=== PATIENT | female | born 1990 | race Caucasian/White ===

== ENCOUNTER 2021-03-15 10:49 | Emergency (ER) | payer BC, SELFPAY ==
[2021-03-15 12:57] VITALS: BP 132/91; PULSE 96; RESP 16; TEMP 36.9; O2SAT 98
--- NOTE | 2021-03-15 13:40 | ED.URI ---
HPI - URI/Sore Throat General Chief Complaint: Upper Respiratory Infection Stated Complaint: Cough,Congestion,Body Aches,Nausea Time Seen by Provider: 03/15/21 13:33 Source: patient and RN notes reviewed Mode of arrival: ambulatory Limitations: no limitations History of Present Illness HPI Narrative: Patient presents today with a 3-day history of subjective fever, cough, sore throat, headache, body aches, chills, nasal congestion. She has been taking Tylenol and Mucinex with mild relief. She has not been vaccinated against COVID-19. No known sick contacts. MD elicited complaint: cough, sore throat and nasal congestion Related Data Home Medications Medication Instructions Recorded Confirmed sertraline 25 mg PO DAILY 03/15/21 03/15/21 Allergies Allergy/AdvReac Type Severity Reaction Status Date / Time No Known Allergies Allergy Verified 10/10/18 19:54 Review of Systems Review of Systems: CONSTITUTIONAL: Denies sweats.+ Body aches, fever, chills EYES: Denies visual changes, redness, or discharge. ENT: Denies rhinorrhea, otalgia.+ Congestion, sore throat CARDIOVASCULAR: Denies chest pain, palpitations, or edema. RESPIRATORY: Denies dyspnea.+ Cough GASTROINTESTINAL: Denies abdominal pain, nausea, vomiting, or diarrhea. GENITOURINARY: Denies dysuria or hematuria. SKIN: Denies rash, itching, or wounds. MUSCULOSKELETAL: Denies back pain, joint pain, or myalgia. NEUROLOGIC: Denies numbness, tingling, or weakness.+ Headache PSYCH: Denies depression or anxiety. PMFSH Comments At time of signature, I have reviewed and agree with nursing past medical, surgical, social and family history unless otherwise noted. Please see nursing chart for further information. There is no relevant family history pertinent to the presenting complaint Exam Narrative: GENERAL: Well-appearing, well-nourished, and in no acute distress. HEAD: Normocephalic, atraumatic. EYES: EOMI. No redness or drainage. Conjunctivae normal. ENT: Mucous membranes pink and moist. Nares mildly congested. No rhinorrhea. TMs normal bilaterally. Throat normal. Uvula midline. NECK: Normal AROM. Supple. No lymphadenopathy. CHEST: No respiratory distress. Clear to auscultation. HEART: Regular rate and rhythm. No murmur appreciated. Normal peripheral pulses. EXTREMITIES: Normal range of motion. No edema. SKIN: Warm, dry, no rash. Capillary refill normal. Normal skin turgor. NEURO: No focal deficits. Alert and oriented x3. Gait steady. PSYCH: Normal affect. No signs of depression or anxiety. Course Course Level of Care: Express Care Visit Vital Signs Vital signs: Vital Signs Temperature 98.5 F 03/15/21 12:57 Pulse Rate 96 03/15/21 12:57 Respiratory Rate 16 03/15/21 12:57 Blood Pressure 132/91 H 03/15/21 12:57 Pulse Oximetry 98 03/15/21 12:57 Temperature 98.5 F 03/15/21 12:57 Pulse Rate 96 03/15/21 12:57 Respiratory Rate 16 03/15/21 12:57 Blood Pressure 132/91 H 03/15/21 12:57 Pulse Oximetry 98 03/15/21 12:57 Reviewed. Pt has been instructed to follow up with her PCP regarding her elevated blood pressure today. MDM - URI/Sore Throat Differential Diagnosis Differential diagnosis: Likely upper respiratory infection, viral infection, bronchitis, pharyngitis and other (COVID-19) Lab Data Attestation: I reviewed the patient's lab results. Lab results narrative: Rapid COVID-19 test positive Critical Care Time Critical Care Time Critical Care Time: No Discharge Plan Discharge Clinical Impression: COVID-19 Patient Disposition: Home, Self-Care Condition: Stable Instructions: COVID-19 (Coronavirus Disease 2019) (ED) Additional Instructions: You have tested positive for COVID-19. Take Mucinex during the day to help break up any congestion in your chest. Take a cough suppressant at night such as Robitussin-DM or NyQuil. Rest and stay hydrated. Follow-up with your doctor with any concerns. Go to the ER
== END 2021-03-15 13:50 | disposition home or self-care (01) ==
PROVIDERS: Emergency Provider Nurse Practitioner; PCP Internal Medicine
DX: U07.1 COVID-19 (principal)
CPT/HCPCS: 87426; 99213; C9803; G0463

== ENCOUNTER 2021-06-30 10:01 | Emergency (ER) | payer OTHER, BC, SELFPAY ==
[2021-06-30 10:39] VITALS: BP 140/102; PULSE 80; RESP 18; TEMP 36.7; O2SAT 100
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
[2021-06-30 11:07] VITALS: BP 138/103
== END 2021-06-30 11:07 | disposition home or self-care (01) ==
PROVIDERS: Emergency Provider Nurse Practitioner
DX: T14.8XXA Other injury of unspecified body region, initial encounter (principal); S46.911A Strain of unspecified muscle, fascia and tendon at shoulder and upper arm level, right arm, initial encounter; V49.40XA Driver injured in collision with unspecified motor vehicles in traffic accident, initial encounter; F41.9 Anxiety disorder, unspecified; F32.A Depression, unspecified
CPT/HCPCS: 99213; G0463